=== PATIENT | male | born 1970 | race Caucasian/White ===

== ENCOUNTER → 2021-01-03 | Outpatient (CLI) | payer BC ==
[~2021-01-03] MED LIST: FLOMAX 0.40.4 MG/CAP PO
== END ==
LOC: COL.RAD 08:23
DX: N32.89 Other specified disorders of bladder (principal); N13.30 Unspecified hydronephrosis; N28.89 Other specified disorders of kidney and ureter

== ENCOUNTER 2021-01-28 05:34 | Day surgery (SDC) | payer BC ==
[~2021-01-28] VITALS: Ht 165.1 cm; Wt 78.3 kg
[2021-01-28] VITALS (12 sets, daily range): BP systolic 114–148; BP diastolic 71–90; PULSE 68–91; TEMP 97.5–98.7
[2021-01-28] MEDS ORDERED: FLOMAX 0.40.4 MG/CAP PO (05:59)
[2021-01-28 06:27] LABS: CALCIUM 9.9 mg/dL (8.4-10.2); CREATININE, serum 2.89 mg/dL (0.72-1.25); POTASSIUM 3.7 mmol/L (3.5-4.5)
--- NOTE | 2021-01-28 07:13 | NUR ---
Patient to the OR at this time with JOHN Long.
--- NOTE | 2021-01-28 11:28 | NUR ---
Patient doing well post op. His supportive at bedside. Vitals stable on room air. He denies nausea. Tolerating water, not yet ready for lunch. Cbi to slow drip. Output in light pink. Will monitor.
--- NOTE | 2021-01-28 13:01 | NUR ---
Patient up and ambulated the halls. he did well, stand by assist. Cbi remains to a slow rate. He bringing him lunch
--- NOTE | 2021-01-28 19:11 | NUR ---
Patient resting in bed. Cbi to slow/moderate rate. Very light pink output. Patient thomas was not irrigating this afternoon, notifed & he came & saw patient & thomas now draining adequately. Patient has tolerated meals his has brought dante. Iv to INT. Adeuqate po intake. Vss onn room air. Report to night nurse
--- NOTE | 2021-01-28 20:41 | NUR ---
PT RESTING IN BED. CBI INFUSING AT STEADY RATE. URINE RETURN PINK/RED. NO CLOTS. PT AND ADVISED VISITING HOURS ARE OVER AT 2000 X2. REVIEWED [facility] COVID POLICY.
--- NOTE | 2021-01-28 23:41 | NUR ---
CBI CONTINUES AT A STEADY PACE WITH LIGHT RED AND OCCASIONAL SMALL BLOOD CLOT RETURN.
[2021-01-29 03:50] VITALS: BP 104/58; PULSE 69; TEMP 97.6
[2021-01-29 07:51] LABS: CREATININE, serum 2.54 mg/dL (0.72-1.25); POTASSIUM 3.7 mmol/L (3.5-4.5)
[2021-01-29 07:55] VITALS: BP 133/80; PULSE 75; TEMP 98.1
--- NOTE | 2021-01-29 08:00 | NUR ---
Patient in bed resting. Alert and oriented x 3. Assessment complete. Stephenson to DD with clear red-tinged urine present. CBI infusing at a very slow rate. Patient denies pain at this time. Denies further needs at this time.
--- NOTE | 2021-01-29 09:27 | NUR ---
Patient primed and pulled per orders. Educated on 6 cup routine. Patient tolerated procedure well. No further needs at this time.
[2021-01-29 12:00] VITALS: BP 133/81; PULSE 81; TEMP 98.4
--- NOTE | 2021-01-29 15:41 | NUR ---
Plan is to return home with Priya . Son Nora is alternate contact . Patient reports pcp is Dr. Avelar and Dr. Casarez. Patient denies having any pain and not use of any DME supports or HHS. RX prefered at [facility]. No medications concerns. Offered supported and educated on services. NF>
[2021-01-29 17:14] VITALS: BP 149/86; PULSE 71; TEMP 98.7
--- NOTE | 2021-01-29 17:40 | NUR ---
Patient has been up ambulating in halls independently with steady gait. Dr. Casarez updated on patient throughout the day. Patient able to void >150 mls for cups 3 and 4 of 6 cup routine. Then voided 50 ml of red tinged urine for cup 5, bladder scanned for [address] Casarez aware. Discharge orders obtained. Discharge education provided to patient. Educated on when to call provider and follow up appointment. Patient educated on increasing fluid intake. All questions answered. INT to right hand discontinued, catheter tip intact. Patient denies needs at this time. Patient ambulated out with surgical staff and family.
== END 2021-01-29 17:40 | disposition home or self-care (01) ==
LOC: SDCO 05:34 → SURG 10:34 → SDCO 01-29 17:40
PROVIDERS: Urology
DX: N40.1 Benign prostatic hyperplasia with lower urinary tract symptoms (principal); N13.39 Other hydronephrosis; R33.8 Other retention of urine; R35.0 Frequency of micturition; R94.4 Abnormal results of kidney function studies; N19 Unspecified kidney failure; E78.5 Hyperlipidemia, unspecified; E78.00 Pure hypercholesterolemia, unspecified; R93.41 Abnormal radiologic findings on diagnostic imaging of renal pelvis, ureter, or bladder; Z20.822 Contact with and (suspected) exposure to COVID-19
CPT/HCPCS: OP; J0690; J1100; J2405; J2704; J3010; J7120

== ENCOUNTER 2021-01-30 09:16 | Inpatient (IN) | payer BC ==
[~2021-01-30] VITALS: Ht 165.1 cm; Wt 76.4 kg
[2021-01-30 10:08] LABS: BASO % 0.2 % (0.0-2.0); EOS # 0.1 K/mm3 (0.0-0.7); EOS % 0.5 % (0-4.0); GRAN % 85.5 % (42.2-75.2); LYMPH # 0.8 K/mm3 (1.2-3.4); LYMPH % 7.5 % (20.0-51.0); MEAN CELL VOLUME 81 fl (80.0-100.0); MEAN CORPUSCULAR HGB CONC 36 g/dl (33.0-37.0); MEAN PLATELET VOLUME 11.4 fl (7.4-10.4); MONO # 0.6 K/mm3 (0.1-0.6); PLATELET COUNT 123 K/mm3 (130-400); RED BLOOD COUNT 3.27 M/mm3 (4.20-5.60); REDCELL DISTRIBUTION WIDTH-CV 11.8 % (11.5-14.5)
[2021-01-30 10:09] LABS: HEMATOCRIT 26.6 % (42.0-52.0); HEMOGLOBIN 9.5 g/dl (13.5-18.0); MEAN CORPUSCULAR HEMOGLOBIN 29 pg (27.0-31.0)
[2021-01-30 10:36] LABS: ALBUMIN 3.8 gm/dL (3.5-5.0); BILIRUBIN,TOTAL 2.4 mg/dL (0.2-1.2); C-REACTIVE PROTEIN 1.9 mg/dL (0.00-0.50); CALCIUM 8.5 mg/dL (8.4-10.2); CREATININE, serum 5.51 mg/dL (0.72-1.25); POTASSIUM 3.2 mmol/L (3.5-4.5)
[2021-01-30 10:39] LABS: TROPONIN-I 0.018 ng/mL (0.00-0.033)
[2021-01-30 11:07] LABS: COLLECTION METHOD IN
[2021-01-30 11:22] LABS: PH 7 (5-8); SQUAMOUS EPITHELIAL None Seen /hpf; URINE APPEARANCE Clear; URINE BACTERIA None Seen /hpf; URINE BILIRUBIN Negative (NEGATIVE); URINE BLOOD 3+ (NEGATIVE); URINE COLOR Yellow; URINE GLUCOSE Negative (NEGATIVE); URINE KETONE Negative (NEGATIVE); URINE LEUKOCYTE ESTERASE Negative (NEGATIVE); URINE NITRATE Negative (NEGATIVE); URINE PROTEIN(semi-quant) 2+ (NEGATIVE); URINE UROBILINOGEN Negative (NEGATIVE)
[2021-01-30 15:02] VITALS: BP 114/69; PULSE 89; TEMP 98.4
[2021-01-30 16:30] VITALS: BP 120/65; PULSE 88
--- NOTE | 2021-01-30 18:06 | NUR ---
Pt arrived to the floor this afternoon. Doing well, urine draining to DD in bag at side of bed is red and has small clots but no issues draining. Pt taking PO well, resting quietly. Yellow gown and bed alarm on. Will continue to monitor and give report to nightshift nurse who will resume care.
[2021-01-30 20:00] VITALS: BP 113/63; PULSE 92; TEMP 98.9
--- NOTE | 2021-01-30 20:00 | NUR ---
PT TOOK A WALK IN HALLS EARLIER. DENIES DIZZINESS. RECINOS DRAININ SL DARK REDDISH URINE IN MOD AMT. OCCASIONAL SMALL CLOTS. PT HAD BANDAID OVE NOES AND HEMATOMA TO BACK OF HEAD FROM FALL AT HOME. DENIES PAIN. CALL LIGHT IN REACH.
--- NOTE | 2021-01-30 21:18 | NUR ---
IV TO SALINE LOCK AT THIS TIME. 1250CC SINCE BEGINNING OF SHIFT PER RECINOS WITH REDDISH COLOR. NO CLOTS.
[2021-01-30 23:32] VITALS: BP 106/62; PULSE 76; TEMP 98.9
[2021-01-31 03:54] VITALS: BP 105/53; PULSE 60; TEMP 98.4
--- NOTE | 2021-01-31 07:37 | NUR ---
Patient is resting in bed. Patient denies pain at this time and requested to go on a walk; this nurse walked with patient. 900 cc was empited from Stephenson bag. Call light and bedside table are within reach. Will continue to monitor patient throughout shift.
[2021-01-31 08:21] VITALS: BP 116/70; PULSE 74; TEMP 99
[2021-01-31 08:22] LABS: BASO % 0.2 % (0.0-2.0); EOS % 0.5 % (0-4.0); GRAN # 4.3 K/mm3 (1.4-6.5); GRAN % 69.3 % (42.2-75.2); LYMPH # 1.2 K/mm3 (1.2-3.4); LYMPH % 19.6 % (20.0-51.0); MEAN CELL VOLUME 83 fl (80.0-100.0); MEAN CORPUSCULAR HGB CONC 35 g/dl (33.0-37.0); MEAN PLATELET VOLUME 12.2 fl (7.4-10.4); MONO # 0.6 K/mm3 (0.1-0.6); MONO % 10.1 % (1.7-9.3); PLATELET COUNT 126 K/mm3 (130-400); RED BLOOD COUNT 3.02 M/mm3 (4.20-5.60); REDCELL DISTRIBUTION WIDTH-CV 12.2 % (11.5-14.5)
[2021-01-31 08:23] LABS: HEMATOCRIT 24.9 % (42.0-52.0); HEMOGLOBIN 8.8 g/dl (13.5-18.0); MEAN CORPUSCULAR HEMOGLOBIN 29 pg (27.0-31.0)
[2021-01-31 08:45] LABS: CREATININE, serum 2.9 mg/dL (0.72-1.25); POTASSIUM 3.3 mmol/L (3.5-4.5)
--- NOTE | 2021-01-31 09:47 | NUR ---
Patient's plan is to return home. Pt is , is Naty at [phone] and they live in [place]; patient states he was fully indep with ADLS prior to this event with no DMES. PCP is Dr. Avelar and Dr. Casarez is patient's specialist. Patient gets medications from [facility] with no difficulty. Pt states he has a will that names his but he is not sure it covers medical. SW offered to complete MPOA form while hospitalized but pt wants to wait. Educated patient on local resources. *D/C plan: Home pending medical progression
[2021-01-31 12:16] VITALS: BP 127/78; PULSE 90; TEMP 98
--- NOTE | 2021-01-31 12:45 | NUR ---
Initial visit; Patient thanked [employer] Worker for looking in on him, offering Blessings and keeping him in her prayers.
--- NOTE | 2021-01-31 15:57 | NUR ---
Patient health summary, discharge summary and home meds printed and reviewed with patient and . Stressed importance of follow up appointments. Reviewed medications. Belongings gathered by patient including all valuables. Patient transport via wheelchair by JOHN Iyer and seatbelted for ride home. Patient and denied questions.
== END 2021-01-31 15:45 | disposition home or self-care (01) | DRG 683 ==
LOC: COL.ER 09:16 → SURG 11:27
PROVIDERS: Emergency Medicine; ADMIT Urology
PROC: 0T9B70Z Drainage of Bladder with Drainage Device, Via Natural or Artificial Opening (ICD-10-PCS; principal; 2021-01-30)
DX: N17.9 Acute kidney failure, unspecified (principal); E87.1 Hypo-osmolality and hyponatremia; N40.1 Benign prostatic hyperplasia with lower urinary tract symptoms; R33.8 Other retention of urine; N18.9 Chronic kidney disease, unspecified
CPT/HCPCS: OP; J0690; J1100; J2405; J2550; J2704; J3010; J7030; J7120

== ENCOUNTER 2021-03-23 05:34 | Day surgery (SDC) | payer BC ==
[~2021-03-23] VITALS: Ht 162.6 cm; Wt 80.5 kg
[2021-03-23] VITALS (9 sets, daily range): BP systolic 120–140; BP diastolic 79–85; PULSE 69–94; TEMP 97.9–99.2
[2021-03-23] MEDS ORDERED: NORCO 325 MG-51 TAB PO (09:05)
--- NOTE | 2021-03-23 10:10 | NUR ---
Patient returns to room 7 per cart and arouses to verbal stimuli. IV fluids infusing and site is free of redness. 2x2 dressing over umbilicus clean and dry. Bandaids to mid abdomen is clean and dry x3. Sats 98% on 2L per nasal cannula. Temp 97.8. Spouse in room. Siderails up x2 and call light in reach. Taking ice chips. Allowed to rest.
--- NOTE | 2021-03-23 10:25 | NUR ---
Resting with eyes closed and not disturbed.
--- NOTE | 2021-03-23 10:40 | NUR ---
Resting without complaints. Takes occasional ice chips.
--- NOTE | 2021-03-23 10:40 | NUR ---
Continues to rest without complaints of pain or nausea.
--- NOTE | 2021-03-23 10:55 | NUR ---
Sipping on Sprite and eating applesauce.
--- NOTE | 2021-03-23 11:10 | NUR ---
Continues to rest without complaints. Tolerates water and Sprite.
--- NOTE | 2021-03-23 11:45 | NUR ---
Assisted up to the bathroom and tolerates activity well. Able to void and then ambulates in the hallway. Denies pain or nausea. Returns to room and has minimal bloody drainage from mid abdominal incision. Bandaid changed. No further drainage.
--- NOTE | 2021-03-23 12:10 | NUR ---
Eating applesauce and drinking Sprite. Continues to deny pain or nausea.
--- NOTE | 2021-03-23 12:40 | NUR ---
Awaits ride home. Watches TV.
--- NOTE | 2021-03-23 12:55 | NUR ---
IV to INT and again assisted up to the bathroom. Continues to deny need for pain medications.
--- NOTE | 2021-03-23 13:15 | NUR ---
IV discontinued and site is free of redness. Dresses self. Given dismissal instructions and voices understanding of these.
--- NOTE | 2021-03-23 13:23 | NUR ---
Patient dismissed to home driven by spouse and taken to the front door per wheelchair and assisted into vehicle with instructions in hand.
== END 2021-03-23 13:23 | disposition home or self-care (01) ==
LOC: SDCO 05:34
DX: K40.90 Unilateral inguinal hernia, without obstruction or gangrene, not specified as recurrent (principal); K42.9 Umbilical hernia without obstruction or gangrene; Z79.899 Other long term (current) drug therapy; Z80.9 Family history of malignant neoplasm, unspecified; E78.00 Pure hypercholesterolemia, unspecified
CPT/HCPCS: C1781; J0330; J0690; J1100; J2405; J2704; J3010; J7120